=== PATIENT | female | born 1930 | race Two or more races ===

== ENCOUNTER 2018-05-04 12:43 | Emergency (ER) | payer MEDICAID, OTHER ==
[~2018-05-04] VITALS: Ht 149.9 cm; Wt 52.2 kg
[~2018-05-04 12:43] MED LIST: CALC667C PO; ENAL2.5T PO; GABA100C9 PO; METF-370 PO; OMEP20CA74 OR; SIMV10TA84 PO
[2018-05-04 13:45] VITALS: BP 172/66
== END 2018-05-04 14:56 | disposition home or self-care (01) ==
LOC: ER 12:43
DX: S52.092A Other fracture of upper end of left ulna, initial encounter for closed fracture (principal); I10 Essential (primary) hypertension; W10.8XXA Fall (on) (from) other stairs and steps, initial encounter; Y93.01 Activity, walking, marching and hiking; Y92.098 Other place in other non-institutional residence as the place of occurrence of the external cause; Y99.8 Other external cause status
CPT/HCPCS: 29105; 73080

== ENCOUNTER 2019-03-08 17:46 | Emergency (ER) | payer MEDICAID ==
[~2019-03-08] VITALS: Ht 152.4 cm; Wt 61.2 kg
[2019-03-08 19:53] LABS: Basophils # (auto) 0.1 uL; Basophils % (auto) 0.8 % (0.0-2.0); Eosinophils # (auto) 0 uL; Eosinophils % (auto) 0.5 % (0.0-7.0); Hematocrit 44.6 % (36.0-46.0); Hemoglobin 14.2 g/dL (12.2-16.2); Lymphocytes # (auto) 1.8 uL; Mean Corpuscular Hemoglobin 29.6 pg (28.0-32.0); Mean Corpuscular Hgb Conc. 31.9 g/dL (32.0-36.0); Mean Corpuscular Volume 92.7 fL (80.0-100.0); Monocytes # (auto) 0.9 uL; Monocytes % (auto) 9.8 % (0.0-12.0); Neutrophils # (auto) 6.6 uL; Neutrophils % (auto) 69.9 % (37.0-80.0); Nucleated Red Blood Cells % 0.1 %; Platelet Count (auto) 242 10^3/uL (140-450); Red Blood Cells 4.81 10^6/uL (4.0-5.20); Red Cell Distribution Width 14.3 % (11.8-14.3); White Blood Cell 9.4 10^3/uL (4.4-10.8)
[2019-03-08 20:13] LABS: Albumin 3.4 g/dL (3.4-5.0); Anion Gap 9 (5-15); BUN/Creatinine Ratio 29.2; Blood Urea Nitrogen 19 mg/dL (7-18); Calcium 9.1 mg/dL (8.5-10.1); Carbon Dioxide 23 mmol/L (21-32); Chloride 104 mmol/L (98-107); GFR African American 111 mL/min; GFR Non-African American 92 mL/min; Glucose 95 mg/dL (74-106); Sodium 136 mmol/L (136-145)
[2019-03-08 20:18] LABS: Alanine Aminotransferase 23 U/L (13-56); Alkaline Phosphatase 138 U/L (45-117); Aspartate Aminotransferase 17 U/L (15-37); Bilirubin, Total 0.3 mg/dL (0.2-1.0); Total Protein 8.2 g/dL (6.4-8.2)
[2019-03-08] MEDS ORDERED: HYDROcodone-ACET 5/325MG TAB PO ONE (23:15)
[2019-03-08 23:39] VITALS: BP 140/54
== END 2019-03-08 23:43 | disposition home or self-care (01) ==
LOC: ER 17:46
DX: S62.102A Fracture of unspecified carpal bone, left wrist, initial encounter for closed fracture (principal); I10 Essential (primary) hypertension; W01.0XXA Fall on same level from slipping, tripping and stumbling without subsequent striking against object, initial encounter; Y93.89 Activity, other specified; Y92.89 Other specified places as the place of occurrence of the external cause; Y99.8 Other external cause status
CPT/HCPCS: 29125; 36415; 73080; 73110; 73130; 80053; 84484; 85025

== ENCOUNTER 2019-09-15 13:08 | Inpatient (IN) | payer MEDICAID ==
[~2019-09-15] VITALS: Ht 154.9 cm; Wt 73.8 kg
[~2019-09-15 13:08] MED LIST changes: -ENAL2.5T PO; +ENAL2.5T7 PO
[2019-09-15 15:19] LABS: Basophils # (auto) 0.1 10 ^3/uL (0-0.2); Eosinophils # (auto) 0.1 10 ^3/uL (0-0.8); Hematocrit 46.2 % (36.0-46.0); Lymphocytes # (auto) 1.9 10 ^3/uL (0.4-5.4); Lymphocytes % (auto) 25.3 % (10.0-50.0); Mean Corpuscular Hemoglobin 29.6 pg (28.0-32.0); Mean Corpuscular Hgb Conc. 32.4 g/dL (32.0-36.0); Mean Corpuscular Volume 91.4 fL (80.0-100.0); Monocytes # (auto) 0.9 10 ^3/uL (0-1.3); Monocytes % (auto) 12.2 % (0.0-12.0); Neutrophils # (auto) 4.6 10 ^3/uL (1.6-8.6); Neutrophils % (auto) 59.5 % (37.0-80.0); Nucleated Red Blood Cells % 0.1 %; Platelet Count (auto) 272 10^3/uL (140-450); Red Blood Cells 5.05 10^6/uL (4.0-5.20); Red Cell Distribution Width 14.4 % (11.8-14.3); White Blood Cell 7.6 10^3/uL (4.4-10.8)
[2019-09-15 15:42] LABS: Alanine Aminotransferase 18 U/L (13-56); Albumin 3.3 g/dL (3.4-5.0); Anion Gap 5 (5-15); Aspartate Aminotransferase 14 U/L (15-37); BUN/Creatinine Ratio 22.4; Blood Urea Nitrogen 13 mg/dL (7-18); Calcium 8.9 mg/dL (8.5-10.1); Carbon Dioxide 28 mmol/L (21-32); Chloride 105 mmol/L (98-107); GFR African American 126 mL/min; GFR Non-African American 105 mL/min; Glucose 87 mg/dL (74-106); Potassium 3.9 mmol/L (3.5-5.1); Sodium 138 mmol/L (136-145)
[2019-09-15 15:52] LABS: Alkaline Phosphatase 134 U/L (45-117); Bilirubin, Total 0.3 mg/dL (0.2-1.0); Total Protein 7.9 g/dL (6.4-8.2)
[2019-09-15] MEDS ORDERED: cloNIDine HCL 0.1 MG TAB PO ONE (20:15)
[2019-09-15] MEDS ORDERED: ONDANSETRON HCL 4 MG/2 ML VIAL IV PRN (21:00)
[2019-09-15] MEDS ORDERED: DOCUSATE SOD 100 MG CAP PO PRN (21:00)
[2019-09-15] MEDS ORDERED: ACETAMINOPHEN 325 MG TAB PO PRN (21:00)
[2019-09-15] MEDS ORDERED: MORPHINE SULF INJ 2 MG/ML SYRINGE 1ML IV PRN (21:00)
[2019-09-15] MEDS ORDERED: HYDROcodone-ACET 5/325MG TAB PO PRN (21:00)
[2019-09-15] MEDS: SODIUM CHLORIDE 0.9% 1,000 ML IV SCH (21:48)
[2019-09-16] MEDS ORDERED: hydrALAZINE HCL 20 MG/ML VL IV PRN (06:00)
[2019-09-16 06:34] LABS: Basophils # (auto) 0 10 ^3/uL (0-0.2); Basophils % (auto) 0.6 % (0.0-2.0); Eosinophils # (auto) 0.1 10 ^3/uL (0-0.8); Eosinophils % (auto) 1.9 % (0.0-7.0); Hematocrit 44.3 % (36.0-46.0); Hemoglobin 14.2 g/dL (12.2-16.2); Lymphocytes # (auto) 1.5 10 ^3/uL (0.4-5.4); Lymphocytes % (auto) 21.9 % (10.0-50.0); Mean Corpuscular Hemoglobin 29.5 pg (28.0-32.0); Mean Corpuscular Hgb Conc. 32.1 g/dL (32.0-36.0); Mean Corpuscular Volume 91.9 fL (80.0-100.0); Monocytes # (auto) 0.7 10 ^3/uL (0-1.3); Monocytes % (auto) 10.1 % (0.0-12.0); Neutrophils # (auto) 4.5 10 ^3/uL (1.6-8.6); Neutrophils % (auto) 65.5 % (37.0-80.0); Platelet Count (auto) 228 10^3/uL (140-450); Red Blood Cells 4.83 10^6/uL (4.0-5.20); Red Cell Distribution Width 14.6 % (11.8-14.3); White Blood Cell 6.8 10^3/uL (4.4-10.8)
[2019-09-16 06:53] LABS: Potassium 3.5 mmol/L (3.5-5.1)
[2019-09-16 07:05] LABS: Calcium 8.4 mg/dL (8.5-10.1)
--- NOTE | 2019-09-16 12:58 | NUR ---
Telemetry admit from ER: KAE HERNÁNDEZ admitted to Telemetry unit after SBAR received. Patient oriented to [facility], RN primary RN, unit, room, bed, and unit policies regarding patient care and visiting hours. Patient now on continuous telemetry monitoring, tele box # [id number] and telemetry reading on arrival to unit is SR 63. Patient placed on bedside oxygen 2 LPM, weighed by bed scale and encouraged to call if they need something. All questions and concerns addressed, patient verbalized understanding. Vital signs stable-96.3, 65 HR, 17 RR, 100%, 147/73
[2019-09-16 13:00] VITALS: BP 147/73
[2019-09-16] MEDS: SODIUM CHLORIDE 0.9% 1,000 ML IV SCH (13:34)
[2019-09-16 17:00] VITALS: BP 144/65
[2019-09-16] MEDS: CALCIUM ACETATE 667 MG CAP PO SCH (17:57)
--- NOTE | 2019-09-16 18:52 | NUR ---
CLOSING NOTE: Patient resting in bed. No S/S of distress at this time. Bed alarm activated for patient safety. Care endorsed.
--- NOTE | 2019-09-16 20:00 | NUR ---
Opening Shift Note Assumed care of patient, awake and alert, [place]ese speaking. No S/S of distress/SOB or pain. Instructed on POC and to call for assist PRN, will continue to monitor for changes Q1hr and PRN.Incontinent of urine keep clean and dry.
[2019-09-16 22:00] VITALS: BP 151/60
[2019-09-16] MEDS ORDERED: GABAPENTIN 300 MG CAP PO SCH (22:00)
[2019-09-16] MEDS ORDERED: PRAVASTATIN SODIUM 20 MG TAB PO SCH (22:00)
--- NOTE | 2019-09-17 05:25 | NUR ---
returned call Dr. Cummings returned call, updated on patient status and reason for call and relayed blood pressure of 184/82, pulse is 54, 180/69, pulse is 53, orders received of amlodepine 10mg.p.o now and daily, and hydralazine 10mg.i.v.p every 6 hour p.r.n if systolic blood pressure is above 160. Continue care.
[2019-09-17] MEDS ORDERED: hydrALAZINE HCL 20 MG/ML VL IV PRN (05:30)
[2019-09-17] MEDS ORDERED: amLODIPine BESYLATE 5 MG TAB PO ONE (05:30)
[2019-09-17 05:36] VITALS: BP 180/69
[2019-09-17] MEDS: SODIUM CHLORIDE 0.9% 1,000 ML IV SCH (06:14)
--- NOTE | 2019-09-17 07:12 | NUR ---
Care report given to Rodney Wells, patient is resting no distress.
--- NOTE | 2019-09-17 07:39 | NUR ---
Opening Shift Note: Assumed care of patient. Patient asleep at this time. No S/S of distress/SOB or pain. Bed in lowest locked position, side rails up x 2, call light within reach. Patient will be instructed on POC and to call for assist PRN, will continue to monitor for changes Q1hr and PRN.
[2019-09-17] MEDS: CALCIUM ACETATE 667 MG CAP PO SCH (08:58)
[2019-09-17 09:00] VITALS: BP 166/79
[2019-09-17] MEDS ORDERED: amLODIPine BESYLATE 5 MG TAB PO SCH (10:00)
[2019-09-17] MEDS ORDERED: ENALAPRIL MALEATE 2.5 MG TAB PO SCH (10:00)
[2019-09-17 13:00] VITALS: BP 139/59
--- NOTE | 2019-09-17 17:45 | NUR ---
Discharge instructions given as ordered. Encourage to follow up with PMD as instructed. All questions and concerns addressed. Patient verbalized understanding. Medication reconciliation form completed and copy given to patient. Home medications held in Pharmacy returned to patient, and needed vaccines given. IV removed with catheter intact, pressure dressing applied, sharif catheter removed. Telemetry unit returned to ICU. Patient taken to vehicle via wheelchair with all personal belongings, accompanied by staff and family member. No distress noted at time of departure. Addendum: 09/17/19 at 1745 by [facility]IN [facility]ATION RN RN fermín Lopez home meds
== END 2019-09-17 17:35 | disposition home or self-care (01) | DRG 199 ==
LOC: ER 13:08 → TELE 13:09 → TELE-WESTW 09-16 13:45
PROVIDERS: ADMIT Hospitalist; ATTEND Hospitalist
DX: I16.0 Hypertensive urgency (principal); E11.9 Type 2 diabetes mellitus without complications; Z79.899 Other long term (current) drug therapy; I11.0 Hypertensive heart disease with heart failure; I50.33 Acute on chronic diastolic (congestive) heart failure
CPT/HCPCS: 36415; 71045; 73090; 80048; 80053; 80061; 83880; 84484; 85025; 93005; 93306; 97163; G0378